=== PATIENT | female | born 1975 | race Caucasian/White ===

== ENCOUNTER 2022-01-15 18:48 | Inpatient (IN) | payer SELFPAY ==
[2022-01-15 18:49] VITALS: BP 117/94; PULSE 108; RESP 16; TEMP 36.6; O2SAT 100; BMI 21.2
[2022-01-15 19:20] LABS: Mucous, Urine 0 SEEN /hpf (<or=2+)
[2022-01-15 19:23] LABS: Color, Urine Yellow (Yellow); Glucose, Dipstick Normal (Normal); Ketone-Dipstick Negative (Negative); Leukocyte Esterase-Dipstick 100 /ul (Negative); Nitrite-Dipstick Negative (Negative); Occult Blood-Urine 10 /ul (Negative); Protein-Dipstick 30 mg/dl (Negative); Urine Bilirubin Dipstick Negative (Negative); Urine Clarity Clear (Clear); Urine Urobilinogen 1 mg/dl (Normal); Urine pH 6.5 (5.0 - 8.0)
[2022-01-15 19:32] LABS: Bacteria 3+ /hpf (None Seen); Red Blood Cells-Urine 0-5 SEEN /hpf (0-5); Squamous Epithelial Cells - UA 0-5 SEEN /hpf (5-10); White Blood Cells 5-10 SEEN /hpf (0-5)
[2022-01-15 19:45] LABS: Hematocrit 38.1 % (37-47); Hemoglobin 12.2 g/dL (12.0-15.0); Mean Corpuscular Hgb 28.5 pg (27.0-32.0); Mean Platelet Vol. 10.3 fl (6.2-12.0); POSITIVE COUNT YES; POSITIVE MORPHOLOGY YES; RBC Distribution Width CV 23.7 % (11.6-14.6); RBC Distribution Width SD 74.4 fl (35.1-43.9); Red Blood Count 4.28 M/mm3 (4.2-5.4); White Blood Count 4.8 K/mm3 (4.4-11.0)
[2022-01-15 19:55] LABS: Platelet Count 23 K/mm3 (150-450)
[2022-01-15 19:59] LABS: Basophil% 0.6 % (0-1); Differential Indicated SCAN CRITERIA MET; Eosinophils% 0.8 % (0-5); Lymphocyte % 35.2 % (19-41); Monocyte% 12.7 % (0-10); Neutrophil # 2.42 X10^3/uL (2.7-7.7); Neutrophil % 50.5 % (47-70)
[2022-01-15 20:00] LABS: Absolute Lymphocyte Count 1.69 X10^3/uL (0.83-4.51); Absolute Neutrophil Count 2.4 X10^3/uL (2.0-7.7); Basophil# 0.03 X10^3/uL; Eosinophil# 0.04 X10^3/uL; Lymphocyte # 1.69 X10^3/ul (0.83-4.51); Monocyte# 0.61 X10^3/uL; NRBC Flagged by Analyzer 0 % (0-5)
[2022-01-15 20:06] LABS: Internal QC Validated? YES +Cl - CLEAR BKGD; Pregnancy, Serum, hCG Quali. NEGATIVE Negative
[2022-01-15 20:10] LABS: Anion Gap 13 (5-15); BUN 4 mg/dL (7-18); BUN/Creat Ratio 5.8 RATIO (10-20); Calcium,Total 8.4 mg/dL (8.5-10.1); Chloride 104 mmol/L (98-107); Creatinine, Serum 0.69 mg/dL (0.55-1.02); Differential Comment SCANNED; EST Glomerular Filtration Rate 97 mL/min (>60); Est Glom Filt Rate - Afr Amer 118 mL/min (>60); Estimated Creatinine Clearance 85.17 ml/min; Glucose 109 mg/dL (74-106); Potassium 4.1 mmol/L (3.5-5.1); Sodium Level 142 mmol/L (136-145)
[2022-01-15 20:11] LABS: Anisocytosis 2+; Hypochromasia 1+; Macrocytosis 1+; Microcytosis 1+; Platelet Estimate MKD DEC (ADEQ)
[2022-01-15 20:15] VITALS: BP 109/90; PULSE 93; RESP 18; TEMP 36.9; O2SAT 100
[2022-01-15 20:19] VITALS: BP 109/90; PULSE 85; RESP 18; TEMP 37.2; O2SAT 99
[2022-01-15] MEDS: Ondansetron ODT 4 MG Tablet PO (20:52)
--- NOTE | 2022-01-15 20:57 | EDS_ITS ---
HPI History of Present Illness Chief Complaint: ETOH Intox Narrative Narrative: Patient presents with her significant other for detox from alcohol. She states she drinks daily and has done so for years. She has not been through rehab for years since the early . However, they relate history that in October, she had nausea and vomiting and was was admitted at [facility] because she was unable to hold any fluids down including alcohol. She stopped drinking for few days, then started again. She denies any suicidal ideation. She states currently she feels shaky and slightly nauseated. She drinks hard alcohol, mainly apple flavored [place]. Her last drink was approximately 4 hours ago. She presents wanting detox. [facility] Medical History ETOH abuse Home Medications NK 01/15/22 [History Last Taken Unknown] Allergy/AdvReac Type Severity Reaction Status Date / Time No Known Allergies Allergy Verified 01/15/22 20:20 Family History Other Alcoholism Cancer Diabetes Surgical History (Updated 01/15/22 @ 21:57 by Leonard Mcginnis) H/O dilation and curettage History of appendectomy Hx of abdominal surgery Social History Smoking Status: Current every day smoker tobacco type: cigarettes ROS ROS ED ROS Narrative Constitutional: No fever, no chills. HEENT: No sore throat. No neck pain. No loss of vision. No rhinorrhea. Cardiovascular: No chest pain. No palpitations. No pedal edema. Respiratory: No cough, no shortness of breath. Abdominal: No abdominal pain. Positive nausea. No vomiting. Genitourinary: No dysuria. No hematuria. Musculoskeletal: No myalgias. No arthralgias. Neurologic: No headaches. No dizziness. No lightheadedness. Feels shaky. Skin: No rash. No change in color. Psychiatric: No depression. No anxiety. EXAM Physical Exam Narrative Exam Narrative: Afebrile. Vital signs noted. HEENT: Normocephalic. Atraumatic. PERRL, EOMI. Neck soft and supple. No point tenderness or step off. Cardiovascular: Regular rate and rhythm. No murmurs, rubs, or gallops appreciated. Respiratory: No tachypnea. Lungs clear to auscultation bilaterally. Gastrointestinal: Abdomen soft, nontender, with normoactive bowel sounds. No rebound or guarding. Neurological: Awake. Alert. Nonfocal, nonlateralizing. Skin: No rash. Normal color. No pallor. Musculoskeletal: No pedal edema. Full range of motion extremities. Const Vital Signs: 01/15/22 18:49 01/15/22 20:15 01/15/22 20:19 Temperature 97.8 F 98.4 F 98.9 F Temperature Source Temporal Oral Oral Pulse Rate 108 H 93 85 Respiratory Rate 16 18 18 Blood Pressure 117/94 H 109/90 H 109/90 H Blood Pressure Mean 101 96 96 Blood Pressure Source Monitor Blood Pressure Position Semi-Fowlers Blood Pressure Location Left Arm Pulse Ox 100 100 99 Oxygen Delivery Method Room Air Room Air Room Air MDM MDM MDM Narrative Medical decision making narrative: Medical screening labs were obtained. CBC is grossly normal with a normal white count and normal hemoglobin. Positive Thrombocytopenia. Her electrolyte panel is grossly unremarkable except for glucose 109 with a normal anion gap of 13. Urinalysis is negative. Blood alcohol level elevated at 348. She was administered Zofran orally for her nausea. Currently, she has not tachycardic and she has a severely elevated blood alcohol level and I see no active signs of withdrawal currently. test is negative. Patient was discussed with Dr. Arreguin for admission to [facility] for detox. Patient is in stable condition. Lab Data Attestation: I reviewed the patient's lab results. Labs: Laboratory Results - last 24 hr 01/15/22 01/15/22 01/15/22 19:11 19:28 19:28 WBC 4.8 RBC 4.28 Hgb 12.2 Hct 38.1 MCV 89.0 MCH 28.5 MCHC 32.0 RDW Std Deviation 74.4 H RDW Coeff of [place] 23.7 H Plt Count 23 L* MPV 10.3 Immature Gran % (Auto) 0.200 Neut % (Auto) 50.5 Lymph % (Auto) 35.2 [place] % (Auto) 12.7 H Eos % (Auto) 0.8 Baso % (Auto) 0.6 Absolute Neuts (auto) 2.4 Absolute Lymphs (auto) 1.69 Nucleated RBC % 0 Differential Comment SCANNED Diff Path Review May foll Platelet Estimate MKD DEC Hypochromasia 1+ Anisocytosis 2+ Microcytosis 1+ Macrocytosis 1+ Sodium 142 Potassium 4.1 Chloride 104 Carbon Dioxide 25.0 Anion Gap 13 BUN 4 L Creatinine 0.69 Estim Creat Clear Calc 85.17 Est GFR (MDRD) Af Amer 118 Est GFR (MDRD) Non-Af 97 BUN/Creatinine Ratio 5.8 L Glucose 109 H Calcium 8.4 L Serum , Qual Urine Color Yellow Urine Clarity Clear Urine pH 6.5 Ur Specific [place] 1.010 Urine Protein 30 H Urine Glucose (UA) Normal Urine Ketones Negative Urine Occult Blood 10 H Urine Nitrite Negative Urine Bilirubin Negative Urine Urobilinogen 1 H Ur Leukocyte Esterase 100 H Urine RBC 0-5 SEEN Urine WBC 5-10 SEEN Ur Squamous Epith Cells 0-5 SEEN Urine Bacteria 3+ Urine Mucus 0 SEEN Ethyl Alcohol 01/15/22 01/15/22 19:28 19:28 WBC RBC Hgb Hct MCV MCH MCHC RDW Std Deviation RDW Coeff of [place] Plt Count MPV Immature Gran % (Auto) Neut % (Auto) Lymph % (Auto) [place] % (Auto) Eos % (Auto) Baso % (Auto) Absolute Neuts (auto) Absolute Lymphs (auto) Nucleated RBC % Differential Comment Diff Path Review Platelet Estimate Hypochromasia Anisocytosis Microcytosis Macrocytosis Sodium Potassium Chloride Carbon Dioxide Anion Gap BUN Creatinine Estim Creat Clear Calc Est GFR (MDRD) Af Amer Est GFR (MDRD) Non-Af BUN/Creatinine Ratio Glucose Calcium Serum , Qual NEGATIVE Urine Color Urine Clarity Urine pH Ur Specific [place] Urine Protein Urine Glucose (UA) Urine Ketones Urine Occult Blood Urine Nitrite Urine Bilirubin Urine Urobilinogen Ur Leukocyte Esterase Urine RBC Urine WBC Ur Squamous Epith Cells Urine Bacteria Urine Mucus Ethyl Alcohol 348.0 H* Discharge Plan Dx/Rx/DC Orders Clinical Impression: Alcohol intoxication, Desire for detoxification, Smoker, Thrombocytopenia Disposition Disposition: [facility] Care [facility] Discharge Date/Time: 01/15/22 21:44
--- NOTE | 2022-01-15 21:01 | HP.PCM.HOS_ITS ---
HPI - General General Date of Admission: 01/15/22 Date of Service: 01/15/22 Chief Complaint: Desire for detoxification HPI Narrative SUKI LEONARD, is a 46 F with a significant history of alcoholism and tobacco who presents to the emergency department for help with alcohol detoxification. Last time patient drank was about 30 minutes prior to presentation. She drinks about a bottle of [place] every day. She has been drinking since age 19. She reports withdrawal symptoms of headache; tremors; and abdominal pain. Also on the of presentation she vomited. She had cut back on drinking on the day of presentation. In 2004 she underwent detoxification at [facility] Medical History no medical history no medical history Home Medications NK 01/15/22 [History Last Taken Unknown] Allergy/AdvReac Type Severity Reaction Status Date / Time No Known Allergies Allergy Verified 01/15/22 20:20 Family History Other Alcoholism Cancer Diabetes Surgical History H/O dilation and curettage History of appendectomy Social History Smoking Status: Current every day smoker tobacco type: cigarettes ROS ROS Narrative Pertinent positives and pertinent negatives as noted in HPI. All other systems were reviewed and are negative Vital Signs Vital Signs Vital Signs: 01/15/22 18:49 01/15/22 20:15 01/15/22 20:19 Temperature 97.8 F 98.4 F 98.9 F Temperature Source Temporal Oral Oral Pulse Rate 108 H 93 85 Respiratory Rate 16 18 18 Blood Pressure 117/94 H 109/90 H 109/90 H Blood Pressure Mean 101 96 96 Blood Pressure Source Monitor Blood Pressure Position Semi-Fowlers Blood Pressure Location Left Arm Pulse Ox 100 100 99 Oxygen Delivery Method Room Air Room Air Room Air Weight Weight: 54.431 kg Body Mass Index (BMI) 21.2 Physical Exam Narrative Physical exam: General: Holding left upper quadrant of abdomen; bent over and complaining of pain. Head: Normocephalic, atraumatic, no tenderness Eyes: Vision is grossly intact. EOMI ENT, no trauma, moist mucous membranes, no rhinorrhea. Poor dentition Neck: Nontender, full range of motion CVS: Regular rate and rhythm. S1-S2 present. No murmur, gallop or rub. Respiratory : clear to auscultation bilaterally, chest wall nontender, no wheezing Abdomen: Soft, nontender, nondistended, normal bowel sounds, no masses : Deferred Back: Nontender, no CVA tenderness, no midline spinal tenderness, deformities, step-offs Extremities: Nontender full range of motion, no trauma Skin: Normal color, no trauma, abrasions Neuro: Alert, oriented, cranial nerves II through XII grossly intact. Tremulousness Psychiatry: Anxious. Crying. Results Lab / Micro Data Result Diagrams: 01/15/22 19:28 01/15/22 19:28 Labs: Laboratory Results - last 24 hr 01/15/22 19:11: Urine Color Yellow, Urine Clarity Clear, Urine pH 6.5, Ur Specific [place] 1.010, Urine Protein 30 H, Urine Glucose (UA) Normal, Urine Ketones Negative, Urine Occult Blood 10 H, Urine Nitrite Negative, Urine Bilirubin Negative, Urine Urobilinogen 1 H, Ur Leukocyte Esterase 100 H, Urine RBC 0-5 SEEN, Urine WBC 5-10 SEEN, Ur Squamous Epith Cells 0-5 SEEN, Urine Bacteria 3+, Urine Mucus 0 SEEN 01/15/22 19:28: WBC 4.8, RBC 4.28, Hgb 12.2, Hct 38.1, MCV 89.0, MCH 28.5, MCHC 32.0, RDW Std Deviation 74.4 H, RDW Coeff of [place] 23.7 H, Plt Count 23 L*, MPV 10.3, Immature Gran % (Auto) 0.200, Neut % (Auto) 50.5, Lymph % (Auto) 35.2, [place] % (Auto) 12.7 H, Eos % (Auto) 0.8, Baso % (Auto) 0.6, Absolute Neuts (auto) 2.4, Absolute Lymphs (auto) 1.69, Nucleated RBC % 0, Differential Comment SCANNED, Diff Path Review May foll, Platelet Estimate MKD DEC, Hypochromasia 1+, Anisocytosis 2+, Microcytosis 1+, Macrocytosis 1+ 01/15/22 19:28: Sodium 142, Potassium 4.1, Chloride 104, Carbon Dioxide 25.0, Anion Gap 13, BUN 4 L, Creatinine 0.69, Estim Creat Clear Calc 85.17, Est GFR (MDRD) Af Amer 118, Est GFR (MDRD) Non-Af 97, BUN/Creatinine Ratio 5.8 L, Glucose 109 H, Calcium 8.4 L 01/15/22 19:28: Serum , Qual NEGATIVE 01/15/22 19:28: Ethyl Alcohol 348.0 H* Assessment & Plan Assessment/Plan (1) Desire for detoxification: (2) Smoker: (3) Thrombocytopenia: PLAN: Plan Alcohol dependence and desire for detoxification Toxicology showed ethanol level of 348 on presentation. Patient be started on phenobarbital and other adjunctive medications: Gabapentin as needed; dicyclomine as needed; Vistaril as needed; Imodium as needed; trazodone as needed; Zofran as needed; scheduled thiamine; and schedule folic acid. Monitor CIWA score Tobacco abuse Counseled Nicotine patch prescribed. Acute on chronic thrombocytopenia Platelet count of 23. Review of electronic community records shows that on 01/09/2022 her platelet was 96; platelet was 221 on 01/05/2022; platelet was 84 on 11/23/2021. Trend CBC DVT prophylaxis Low risk Encourage to ambulate Charges/Coding Visit Charges Inpatient E&M: 22880 Init Hosp L2
[2022-01-15 21:29] VITALS: BP 116/80; PULSE 83; RESP 18; TEMP 36.8; O2SAT 96
[2022-01-15 21:55] VITALS: BMI 20.5
[2022-01-15 22:00] VITALS: BP 117/71; PULSE 81; RESP 18; TEMP 37; O2SAT 100
[2022-01-15] MEDS: Phenobarbital 32.4 MG Tablet 64.8 MG PO (22:10)
[2022-01-15] MEDS: traZODone 100 MG Tablet PO (22:10)
[2022-01-15] MEDS: hydrOXYzine PAM 25 MG Capsule 50 MG PO (22:10)
[2022-01-16 02:05] VITALS: BP 102/66; PULSE 105; RESP 18; TEMP 37.1; O2SAT 97
[2022-01-16] MEDS: Phenobarbital 32.4 MG Tablet 64.8 MG PO ×6 (02:09→22:00)
[2022-01-16] MEDS: hydrOXYzine PAM 25 MG Capsule 50 MG PO ×3 (02:09→14:42)
[2022-01-16] MEDS: Gabapentin 300 MG Capsule PO ×3 (02:09→18:07)
[2022-01-16] MEDS: Dicyclomine 10 MG Capsule 20 MG PO (02:09)
[2022-01-16 05:45] VITALS: BP 101/58; PULSE 112; RESP 16; TEMP 37.4; O2SAT 95
[2022-01-16] MEDS: Ibuprofen 400 MG Tablet PO (05:49)
[2022-01-16 06:05] LABS: Absolute Lymphocyte Count 1.31 X10^3/uL (0.83-4.51); Absolute Neutrophil Count 4.9 X10^3/uL (2.0-7.7); Basophil# 0.02 X10^3/uL; Basophil% 0.3 % (0-1); Eosinophil# 0.04 X10^3/uL; Eosinophils% 0.6 % (0-5); Hematocrit 30.8 % (37-47); Hemoglobin 10.1 g/dL (12.0-15.0); Lymphocyte # 1.31 X10^3/ul (0.83-4.51); Lymphocyte % 18.8 % (19-41); Mean Corp Hgb Conc 32.8 g/dL (32-36); Mean Corpuscular Hgb 29.4 pg (27.0-32.0); Mean Corpuscular Volume 89.8 fL (81-99); Monocyte# 0.64 X10^3/uL; Monocyte% 9.2 % (0-10); NRBC Flagged by Analyzer 0 % (0-5); Neutrophil # 4.94 X10^3/uL (2.7-7.7); Neutrophil % 70.7 % (47-70); POSITIVE COUNT YES; POSITIVE MORPHOLOGY YES; RBC Distribution Width CV 23.2 % (11.6-14.6); RBC Distribution Width SD 74.9 fl (35.1-43.9); Red Blood Count 3.43 M/mm3 (4.2-5.4)
[2022-01-16 06:19] LABS: Differential Indicated SCAN CRITERIA MET; Platelet Count 16 K/mm3 (150-450)
[2022-01-16 06:37] LABS: Anisocytosis 2+; Differential Comment SCANNED; Hypochromasia RARE; Macrocytosis 1+; Microcytosis 1+; Platelet Estimate MKD DEC (ADEQ)
--- NOTE | 2022-01-16 08:20 | PN.HOSP_ITS ---
Subjective Subjective Feeling better. Tremulousness ongoing, but improved. Complains of RUQ and epigastric tenderness. Objective Data Objective Data Vital Signs: Vital Signs Temp Pulse Resp BP Pulse Ox O2 Del Method 37.4 C H 112 H 16 101/58 L 95 Room Air 01/16/22 05:45 01/16/22 05:45 01/16/22 05:45 01/16/22 05:45 01/16/22 05:45 01/16/22 05:45 Oxygen Delivery Method Room Air Weight: 52.4 kg Body Mass Index (BMI) 20.5 Lab / Micro Data Result Diagrams: 01/16/22 05:53 01/15/22 19:28 Labs: Laboratory Results - last 24 hr 01/15/22 19:11: Urine Color Yellow, Urine Clarity Clear, Urine pH 6.5, Ur Specific [place] 1.010, Urine Protein 30 H, Urine Glucose (UA) Normal, Urine Ketones Negative, Urine Occult Blood 10 H, Urine Nitrite Negative, Urine Bilirubin Negative, Urine Urobilinogen 1 H, Ur Leukocyte Esterase 100 H, Urine RBC 0-5 SEEN, Urine WBC 5-10 SEEN, Ur Squamous Epith Cells 0-5 SEEN, Urine Bacteria 3+, Urine Mucus 0 SEEN 01/15/22 19:28: WBC 4.8, RBC 4.28, Hgb 12.2, Hct 38.1, MCV 89.0, MCH 28.5, MCHC 32.0, RDW Std Deviation 74.4 H, RDW Coeff of [place] 23.7 H, Plt Count 23 L*, MPV 10.3, Immature Gran % (Auto) 0.200, Neut % (Auto) 50.5, Lymph % (Auto) 35.2, [place] % (Auto) 12.7 H, Eos % (Auto) 0.8, Baso % (Auto) 0.6, Absolute Neuts (auto) 2.4, Absolute Lymphs (auto) 1.69, Nucleated RBC % 0, Differential Comment SCANNED, Diff Path Review May [place], Platelet Estimate MKD DEC, Hypochromasia 1+, Anisocytosis 2+, Microcytosis 1+, Macrocytosis 1+ 01/15/22 19:28: Sodium 142, Potassium 4.1, Chloride 104, Carbon Dioxide 25.0, Anion Gap 13, BUN 4 L, Creatinine 0.69, Estim Creat Clear Calc 85.17, Est GFR (MDRD) Af Amer 118, Est GFR (MDRD) Non-Af 97, BUN/Creatinine Ratio 5.8 L, Glucose 109 H, Calcium 8.4 L 01/15/22 19:28: Serum , Qual NEGATIVE 01/15/22 19:28: Ethyl Alcohol 348.0 H* 01/16/22 05:53: WBC 7.0, RBC 3.43 L, Hgb 10.1 L, Hct 30.8 L, MCV 89.8, MCH 29.4, MCHC 32.8, RDW Std Deviation 74.9 H, RDW Coeff of [place] 23.2 H, Plt Count 16 L*, MPV TNP, Immature Gran % (Auto) 0.400, Neut % (Auto) 70.7 H, Lymph % (Auto) 18.8 L, [place] % (Auto) 9.2, Eos % (Auto) 0.6, Baso % (Auto) 0.3, Absolute Neuts (auto) 4.9, Absolute Lymphs (auto) 1.31, Nucleated RBC % 0, Differential Comment SCANNED, Diff Path Review May foll, Platelet Estimate MKD DEC, Hypochromasia RARE, Anisocytosis 2+, Microcytosis 1+, Macrocytosis 1+ Physical Exam Const alert and no apparent distress Resp normal respiratory effort and no retractions Cardio regular rate and regular rhythm GI GI Narrative: RUQ tenderness to TTP with hepatomegaly beyond 1 cm the costal margin. Neuro Sensorium / Orientation: awake and alert Psych affect normal Assessment & Plan Assessment/Plan (1) Desire for detoxification: PLAN: Alcohol dependence and desire for detoxification Toxicology showed ethanol level of 348 on presentation. Patient be started on phenobarbital and other adjunctive medications: Gabapentin as needed; dicyclomine as needed; Vistaril as needed; Imodium as needed; trazodone as needed; Zofran as needed; scheduled thiamine; and schedule folic acid. Monitor CIWA score Has had h/o alcohol withdrawal induced-seizure. (2) Smoker: PLAN: Tobacco abuse Counseled Nicotine patch prescribed. (3) Thrombocytopenia: PLAN: Acute on chronic thrombocytopenia Platelet count of 23. Review of electronic community records shows that on 01/09/2022 her platelet was 96; platelet was 221 on 01/05/2022; platelet was 84 on 11/23/2021. Trend CBC [facility] review: * Platelets was 84k on 11/23, 96k on 01/09. INR 1 on 01/09 * CT A/P on 01/09: Probable hepatic steatosis Check LDH (doubt TTP). ITP v cirrhosis v other. PLAN: Plan DVT prophylaxis Low risk Encourage to ambulate Charges/Coding Visit Charges Inpatient E&M: 13436 Subs Hosp L2
[2022-01-16] MEDS: Thiamine Hydrochloride 100 MG Tablet PO (09:42)
[2022-01-16] MEDS: Folic Acid 1 MG Tablet PO (09:43)
[2022-01-16 10:00] VITALS: BP 113/74; PULSE 98; RESP 16; TEMP 36.9; O2SAT 99
--- NOTE | 2022-01-16 10:39 | ADDICTION ---
This advertising writer met with PT to conduct ASAM, MSE, AUDIT, DUDIT assessments and to plan for d/c. PT A+Ox4 and participated actively. All assessments completed and placed in PT's chart. PT plans to f/u with [facility] for outpatient treatment services. PT did not indicate a need for transportation post d/c from [facility].
[2022-01-16 11:11] LABS: ALB/GLOB Ratio 0.8 RATIO (0.9-2.4); AST(SGOT) 33 U/L (15-37); Alanine Aminotransfer ALT/SGPT 24 U/L (13-56); Albumin, Serum 2.7 g/dL (3.2-5.0); Alkaline Phosphatase 135 U/L (45-117); Anion Gap 10 (5-15); BUN 4 mg/dL (7-18); BUN/Creat Ratio 6.8 RATIO (10-20); Chloride 98 mmol/L (98-107); Creatinine, Serum 0.58 mg/dL (0.55-1.02); EST Glomerular Filtration Rate 118 mL/min (>60); Est Glom Filt Rate - Afr Amer 143 mL/min (>60); Estimated Creatinine Clearance 101.32 ml/min; Globulin 3.3 g/dL (2.2-4.2); Glucose 83 mg/dL (74-106); LDH 217 U/L (84-246); Potassium 3.8 mmol/L (3.5-5.1); Sodium Level 135 mmol/L (136-145)
[2022-01-16 11:33] LABS: Prothrombin Time (Protime)PT. 13.1 SECONDS (11.7-14.9)
--- NOTE | 2022-01-16 12:32 | CASEMGMT ---
Social Work SW met with patient to provide self pay resources. Explained the information given and offered education on [facility]. Pt stated if feels up to completing Medicaid application will do so and return to [facility] to fax to [facility]. SHEYLA Mendoza
[2022-01-16 16:00] VITALS: BP 119/70; PULSE 88; RESP 16; TEMP 36.7; O2SAT 97
[2022-01-16 22:00] VITALS: BP 119/72; PULSE 95; RESP 16; TEMP 36.9; O2SAT 99
[2022-01-16] MEDS: traZODone 100 MG Tablet PO (22:03)
[2022-01-17] MEDS: Phenobarbital 32.4 MG Tablet 64.8 MG PO ×2 (02:04→06:02)
[2022-01-17] MEDS: Ibuprofen 400 MG Tablet PO (02:08)
[2022-01-17 04:00] VITALS: BP 117/63; PULSE 95; RESP 16; TEMP 36.6; O2SAT 100
[2022-01-17 04:01] VITALS: BP 117/63; PULSE 95; RESP 16; TEMP 36.6; O2SAT 100
[2022-01-17 06:38] LABS: Absolute Lymphocyte Count 1.34 X10^3/uL (0.83-4.51); Absolute Neutrophil Count 2.9 X10^3/uL (2.0-7.7); Basophil# 0.03 X10^3/uL; Basophil% 0.6 % (0-1); Eosinophil# 0.13 X10^3/uL; Eosinophils% 2.8 % (0-5); Hematocrit 29.7 % (37-47); Hemoglobin 9.7 g/dL (12.0-15.0); Lymphocyte # 1.34 X10^3/ul (0.83-4.51); Lymphocyte % 28.4 % (19-41); Mean Corp Hgb Conc 32.7 g/dL (32-36); Mean Corpuscular Hgb 29.8 pg (27.0-32.0); Mean Corpuscular Volume 91.1 fL (81-99); Monocyte# 0.35 X10^3/uL; Monocyte% 7.4 % (0-10); NRBC Flagged by Analyzer 0 % (0-5); Neutrophil # 2.85 X10^3/uL (2.7-7.7); Neutrophil % 60.4 % (47-70); POSITIVE COUNT YES; POSITIVE MORPHOLOGY YES; RBC Distribution Width SD 74.9 fl (35.1-43.9); Red Blood Count 3.26 M/mm3 (4.2-5.4); White Blood Count 4.7 K/mm3 (4.4-11.0)
[2022-01-17 06:40] LABS: Differential Indicated SCAN CRITERIA MET; Platelet Count 18 K/mm3 (150-450)
[2022-01-17 06:51] LABS: Anisocytosis 1+; Differential Comment SCANNED; Macrocytosis RARE; Microcytosis RARE; Platelet Estimate MKD DEC (ADEQ)
[2022-01-17 07:01] LABS: ALB/GLOB Ratio 0.7 RATIO (0.9-2.4); AST(SGOT) 31 U/L (15-37); Alanine Aminotransfer ALT/SGPT 22 U/L (13-56); Albumin, Serum 2.5 g/dL (3.2-5.0); Alkaline Phosphatase 150 U/L (45-117); Anion Gap 8 (5-15); BUN 7 mg/dL (7-18); BUN/Creat Ratio 12.7 RATIO (10-20); Calcium,Total 8.3 mg/dL (8.5-10.1); Chloride 100 mmol/L (98-107); Creatinine, Serum 0.55 mg/dL (0.55-1.02); EST Glomerular Filtration Rate 126 mL/min (>60); Est Glom Filt Rate - Afr Amer 153 mL/min (>60); Estimated Creatinine Clearance 106.85 ml/min; Globulin 3.6 g/dL (2.2-4.2); Glucose 95 mg/dL (74-106); Potassium 3.6 mmol/L (3.5-5.1); Protein, Total 6.1 g/dL (6.4-8.2); Sodium Level 133 mmol/L (136-145)
--- NOTE | 2022-01-17 07:54 | PN.HOSP_ITS ---
Subjective Subjective States that she has to leave because her daughter needs her and that she needs a fucking cigarrette. Objective Data Objective Data Vital Signs: Vital Signs Temp Pulse Resp BP Pulse Ox O2 Del Method 36.6 C 95 16 117/63 100 Room Air 01/17/22 04:01 01/17/22 04:01 01/17/22 04:01 01/17/22 04:01 01/17/22 04:01 01/17/22 04:01 Oxygen Delivery Method Room Air Weight: 52.4 kg Body Mass Index (BMI) 20.5 Lab / Micro Data Result Diagrams: 01/17/22 06:15 01/17/22 06:15 Labs: Laboratory Results - last 24 hr 01/16/22 05:53: Sodium 135 L, Potassium 3.8, Chloride 98, Carbon Dioxide 27.0, Anion Gap 10, BUN 4 L, Creatinine 0.58, Estim Creat Clear Calc 101.32, Est GFR (MDRD) Af Amer 143, Est GFR (MDRD) Non-Af 118, BUN/Creatinine Ratio 6.8 L, Glucose 83, Calcium 8.0 L, Total Bilirubin 0.90, AST 33, ALT 24, Alkaline Phosphatase 135 H, Lactate Dehydrogenase 217, Total Protein 6.0 L, Albumin 2.7 L , Globulin 3.3, Albumin/Globulin Ratio 0.8 L 01/16/22 11:05: PT 13.1, INR 1.0 01/17/22 06:15: WBC 4.7, RBC 3.26 L, Hgb 9.7 L, Hct 29.7 L, MCV 91.1, MCH 29.8, MCHC 32.7, RDW Std Deviation 74.9 H, RDW Coeff of [place] 23.0 H, Plt Count 18 L*, MPV TNP, Immature Gran % (Auto) 0.400, Neut % (Auto) 60.4, Lymph % (Auto) 28.4, [place] % (Auto) 7.4, Eos % (Auto) 2.8, Baso % (Auto) 0.6, Absolute Neuts (auto) 2.9, Absolute Lymphs (auto) 1.34, Nucleated RBC % 0, Differential Comment SCANNED, Diff Path Review May foll, Platelet Estimate MKD DEC, Anisocytosis 1+, Microcytosis RARE, Macrocytosis RARE 01/17/22 06:15: Sodium 133 L, Potassium 3.6, Chloride 100, Carbon Dioxide 25.0, Anion Gap 8, BUN 7, Creatinine 0.55, Estim Creat Clear Calc 106.85, Est GFR (MDRD) Af Amer 153, Est GFR (MDRD) Non-Af 126, BUN/Creatinine Ratio 12.7, Glucose 95, Calcium 8.3 L, Total Bilirubin 0.50, AST 31, ALT 22, Alkaline Phosphatase 150 H, Total Protein 6.1 L, Albumin 2.5 L, Globulin 3.6, Albumin/Globulin Ratio 0.7 L Physical Exam Const Constitutional Narrative: Fully dressed and walking out the door. Assessment & Plan Assessment/Plan (1) Desire for detoxification: PLAN: Alcohol dependence and desire for detoxification Toxicology showed ethanol level of 348 on presentation. Patient be started on phenobarbital and other adjunctive medications: Gabapentin as needed; dicyclomine as needed; Vistaril as needed; Imodium as needed; trazodone as needed; Zofran as needed; scheduled thiamine; and schedule folic acid. Monitor CIWA score Has had h/o alcohol withdrawal induced-seizure. Patient leaving AGAINST MEDICAL ADVICE. States that she has to help her daughter, who needs her. Unclear how the patient was aware that her daughter needs her. She denies that she is leaving to start drinking again. (2) Smoker: PLAN: Tobacco abuse Counseled Nicotine patch prescribed. (3) Thrombocytopenia: PLAN: Acute on chronic thrombocytopenia Platelet count of 16. Review of electronic community records shows that on 01/09/2022 her platelet was 96; platelet was 221 on 01/05/2022; platelet was 84 on 11/23/2021. Trend CBC [facility] review: * Platelets was 84k on 11/23, 96k on 01/09. INR 1 on 01/09 * CT A/P on 01/09: Probable hepatic steatosis LDH 217 ITP v cirrhosis v other. DW Dr. Andres, reviewed data with him. 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 Ultrasound ordered to check to see if she has cirrhotic changes and/or sple nomegaly. Patient states that she will follow-up with oncology but does not ask with whom where she walks out the door. I highly suspect that patient will not follow-up. Patient did receive a dose of dexamethasone here and I will send the remainder to a pharmacy but unclear if she will follow-up. 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 Patient advised that she could have bleeding and even . HIV and hepatitis B and C ordered. Results still pending. (4) Anemia: PLAN: Check iron studies, B12, Folatem, TSH PLAN: Plan DVT prophylaxis Low risk Encourage to ambulate Greater than 35 minutes which greater than 50% of time was coordinating testing for the thrombocytopenia as well as discussing with hematology about her thrombocytopenia.
--- NOTE | 2022-01-17 08:05 | NURSING ---
pt walking about in her room, somewhat pacing. pt inquires what her PLT count is this am. updated pt. pt states oh good, it went up a little bit. I will be ready to go home today then. the doctor told me yesterday that I may need a transfusion if it continues to drop but it went so i should be good. reinforced/educated/teachback on precautions with low platelett count.
[2022-01-17 09:01] LABS: Thyroid Stim Hormone (TSH) 2.14 uIU/mL (0.358-3.74)
[2022-01-17 09:24] LABS: Ferritin 69 ng/mL (8-252); Iron 339 ug/dL (50-170); Iron Binding Capacity,Total 429 ug/dL (250-450)
[2022-01-17 10:00] VITALS: BP 135/68; PULSE 100; RESP 16; TEMP 37.1; O2SAT 100
[2022-01-17] MEDS: Folic Acid 1 MG Tablet PO (10:36)
[2022-01-17] MEDS: dexAMETHasone 4 MG Tablet 40 MG PO (10:36)
[2022-01-17] MEDS: Thiamine Hydrochloride 100 MG Tablet PO (10:36)
--- NOTE | 2022-01-17 10:57 | DS.PCM_ITS ---
Providers Date of Admission: 01/15/22 Primary Care Physician: No Primary Care Phys Reason For Visit: DESIRE FOR DETOXIFICATION Diagnosis Discharge Diagnosis (1) Desire for detoxification: Status: Acute Plan: Alcohol dependence and desire for detoxification Toxicology showed ethanol level of 348 on presentation. Patient be started on phenobarbital and other adjunctive medications: Gabapentin as needed; dicyclomine as needed; Vistaril as needed; Imodium as needed; trazodone as needed; Zofran as needed; scheduled thiamine; and schedule folic acid. Monitor CIWA score Has had h/o alcohol withdrawal induced-seizure. Patient leaving AGAINST MEDICAL ADVICE. States that she has to help her daughter, who needs her. Unclear how the patient was aware that her daughter needs her. She denies that she is leaving to start drinking again. (2) Smoker: Status: Acute Code(s): F17.200 - Nicotine dependence, unspecified, uncomplicated Plan: Tobacco abuse Counseled Nicotine patch prescribed. (3) Thrombocytopenia: Status: Acute Code(s): D69.6 - Thrombocytopenia, unspecified Plan: Acute on chronic thrombocytopenia Platelet count of 16. Review of electronic community records shows that on 01/09/2022 her platelet was 96; platelet was 221 on 01/05/2022; platelet was 84 on 11/23/2021. Trend CBC [facility] review: * Platelets was 84k on 11/23, 96k on 01/09. INR 1 on 01/09 * CT A/P on 01/09: Probable hepatic steatosis LDH 217 ITP v cirrhosis v other. DW Dr. Andres, reviewed data with him. 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 Ultrasound ordered to check to see if she has cirrhotic changes and/or sple nomegaly. Patient states that she will follow-up with oncology but does not ask with whom where she walks out the door. I highly suspect that patient will not follow-up. Patient did receive a dose of dexamethasone here and I will send the remainder to a pharmacy but unclear if she will follow-up. 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 Patient advised that she could have bleeding and even . HIV and hepatitis B and C ordered. Results still pending. (4) Anemia: Status: Acute Code(s): D64.9 - Anemia, unspecified Plan: Check iron studies, B12, Folatem, TSH Plan DVT prophylaxis Low risk Encourage to ambulate Greater than 35 minutes which greater than 50% of time was coordinating testing for the thrombocytopenia as well as discussing with hematology about her thrombocytopenia. Medications at Discharge Home Medications dexamethasone 4 mg tablet 40 mg PO DAILY #3 tabs 01/17/22 Weight / BMI Weight Weight: 52.4 kg Body Mass Index (BMI) 20.5 ABG / Lab / Microbiology Data Result Diagrams: 01/17/22 06:15 01/17/22 06:15 Laboratory: Laboratory Results - last 24 hr 01/15/22 19:27: Vitamin B12 Cancelled 01/15/22 19:28: TSH 2.14 01/16/22 05:53: Sodium 135 L, Potassium 3.8, Chloride 98, Carbon Dioxide 27.0, Anion Gap 10, BUN 4 L, Creatinine 0.58, Estim Creat Clear Calc 101.32, Est GFR (MDRD) Af Amer 143, Est GFR (MDRD) Non-Af 118, BUN/Creatinine Ratio 6.8 L, Glucose 83, Calcium 8.0 L, Total Bilirubin 0.90, AST 33, ALT 24, Alkaline Phosphatase 135 H, Lactate Dehydrogenase 217, Total Protein 6.0 L, Albumin 2.7 L , Globulin 3.3, Albumin/Globulin Ratio 0.8 L 01/16/22 11:05: PT 13.1, INR 1.0 01/16/22 19:26: Iron 339 H, TIBC 429, Iron Saturation 79.0 H, Ferritin 69, Folate 2.30 L 01/17/22 06:15: WBC 4.7, RBC 3.26 L, Hgb 9.7 L, Hct 29.7 L, MCV 91.1, MCH 29.8, MCHC 32.7, RDW Std Deviation 74.9 H, RDW Coeff of [place] 23.0 H, Plt Count 18 L*, MPV TNP, Immature Gran % (Auto) 0.400, Neut % (Auto) 60.4, Lymph % (Auto) 28.4, [place] % (Auto) 7.4, Eos % (Auto) 2.8, Baso % (Auto) 0.6, Absolute Neuts (auto) 2.9, Absolute Lymphs (auto) 1.34, Nucleated RBC % 0, Differential Comment SCANNED, Diff Path Review May foll, Platelet Estimate MKD DEC, Anisocytosis 1+, Microcytosis RARE, Macrocytosis RARE 01/17/22 06:15: Sodium 133 L, Potassium 3.6, Chloride 100, Carbon Dioxide 25.0, Anion Gap 8, BUN 7, Creatinine 0.55, Estim Creat Clear Calc 106.85, Est GFR (MDRD) Af Amer 153, Est GFR (MDRD) Non-Af 126, BUN/Creatinine Ratio 12.7, Glucose 95, Calcium 8.3 L, Total Bilirubin 0.50, AST 31, ALT 22, Alkaline Phosphatase 150 H, Total Protein 6.1 L, Albumin 2.5 L, Globulin 3.6, Albumin/Globulin Ratio 0.7 L D/C Instructions Discharge Diet: No restrictions Call your doctor if you observe: - (Blood in stool. Dark tarry stools.) Meaningful Use Info Meaningful Use Diagnoses (Choose all that apply): None applicable Discharge Plan Admission Admit Date/Time: 01/15/22 21:02 Primary Reason for Your Visit: Alcohol withdrawal Attending Provider: Jamie Fair Primary Care Provider: Care Physician,No Primary Consulting Providers: Javad Arreguin Discharge Orders/Prescriptions Prescriptions: New dexamethasone 4 mg Tablet 40 mg PO DAILY Qty: 3 0RF Referrals / Follow Up: *[facility] ([facility] [Provider Group] - In 1 Week Care Physician,No Primary [Primary Care Provider] - Disposition Disposition (needs filled in before D/C Order can be placed): Against Medical Advice Charges/Coding Visit Charges Inpatient E&M: [id number] Disch Hosp
[2022-01-17 11:16] LABS: HIV - WCH Non-Reactive (Nonreactive); Hepatitis B Surface Antigen Non-Reactive (Nonreactive); Hepatitis C Antibody Non-Reactive (Nonreactive)
--- NOTE | 2022-01-17 12:52 | CASEMGMT ---
Social Work Pt left, however did complete Medicaid application prior to leaving. LYNETTE faxed application to [employer] [place] for pt. AMNA Tsang
[2022-01-19 09:04] LABS: Pathologist Review Reviewed
[2022-01-19 09:07] LABS: Pathologist Review Reviewed
[2022-01-19 09:16] LABS: Vitamin B12 344 pg/mL (211-911)
[2022-01-19 13:17] LABS: Pathologist Review Reviewed
== END 2022-01-17 10:45 | disposition left against medical advice (07) | DRG 894 ==
LOC: ED 21:14 → MS3 21:38
PROVIDERS: Admitting Provider Hospitalist; Emergency Provider Emergency Medicine
DX: F10.239 Alcohol dependence with withdrawal, unspecified (principal); D69.3 Immune thrombocytopenic purpura; K76.0 Fatty (change of) liver, not elsewhere classified; F17.210 Nicotine dependence, cigarettes, uncomplicated; D64.9 Anemia, unspecified; Y90.8 Blood alcohol level of 240 mg/100 ml or more; Z53.29 Procedure and treatment not carried out because of patient's decision for other reasons
CPT/HCPCS: 36415; 80048; 80053; 81001; 82077; 82607; 82728; 82746; 83540; 83550; 83615; 84443; 84703; 85025; 85610; 86703; 86803; 87340; 99283; 99406; A4216